=== PATIENT | female | born 1955 | race Caucasian/White ===

== ENCOUNTER 2018-08-28 07:12 | Emergency (ER) | payer SELFPAY ==
[2018-08-28 07:29] VITALS: BP 126/71
--- NOTE | 2018-08-28 07:49 | UC ---
Eye Complaint HPI - HPI Summary HPI Summary: 62 yo female with bilateral eye redness/tearing/pruritis/edema for about a day mild URI symptoms contact lens user no phophobia or fb sensation - History of Current Complaint Chief Complaint: UCEye Stated Complaint: BILATERAL EYE COMPLAINT Time Seen by Provider: 08/28/18 07:33 Hx Obtained From: Patient Onset/Duration: Gradual Onset, Lasting Hours Timing: Constant Severity Initially: Mild Pain Intensity: 3 Pain Scale Used: 0-10 Numeric Location of Injury: Conjunctiva Aggravating Factor(s): Nothing Associated Signs And Symptoms: Positive: Drainage (Clear), Swelling - lids - Risk Factors Penetrating Injury Risk Factor: Negative Globe Rupture Risk Factors: Negative Acute Glaucoma Risk Factors: Negative Optic Artery Occlusion Risk Factors: Negative - Allergies/Home Medications Allergies/Adverse Reactions: Allergies Allergy/AdvReac Type Severity Reaction Status Date / Time No Known Allergies Allergy Verified 08/28/18 07:28 PMH/Surg Hx/FS Hx/Imm Hx Previously Healthy: Yes - Surgical History Surgical History: Yes Surgery Procedure, Year, and Place: circlage - Family History Known Family History: Positive: Hypertension - Social History Alcohol Use: Rare Substance Use Type: None Smoking Status (MU): Never Smoked Tobacco Review of Systems All Other Systems Reviewed And Are Negative: Yes Constitutional: Positive: Negative Skin: Positive: Negative Eyes: Positive: Drainage, Eye Redness ENT: Positive: Sinus Congestion Respiratory: Positive: Negative Cardiovascular: Positive: Negative Gastrointestinal: Positive: Negative Genitourinary: Positive: Negative Motor: Positive: Negative Neurovascular: Positive: Negative Musculoskeletal: Positive: Negative Neurological: Positive: Negative Psychological: Positive: Negative Physical Exam Triage Information Reviewed: Yes Appearance: Well-Appearing, No Pain Distress, Well-Nourished Vital Signs: Initial Vital Signs Temp 98.0 F 08/28/18 07:24 Pulse 72 08/28/18 07:24 Resp 15 08/28/18 07:24 BP 126/71 08/28/18 07:24 Pulse Ox 98 08/28/18 07:24 Vital Signs Reviewed: Yes Eyes: Positive: Conjunctiva Inflamed, Other: - bilateral lid edema and bilateral chemosis R>L ENT: Positive: Hearing grossly normal, Nasal congestion, TMs normal, Uvula midline. Negative: Nasal drainage, Tonsillar swelling, Tonsillar exudate, Trismus, Muffled voice, Hoarse voice, Dental tenderness, Sinus tenderness Dental Exam: Normal Neck: Positive: Supple, Nontender, No Lymphadenopathy Respiratory: Positive: Lungs clear, Normal breath sounds, No respiratory distress, No accessory muscle use Cardiovascular: Positive: RRR, No Murmur Musculoskeletal: Positive: ROM Intact, No Edema Neurological: Positive: Alert Psychological Exam: Normal Skin Exam: Normal Eye Complaint Course/Dx - Differential Dx/Diagnosis Provider Diagnosis: Chemosis of conjunctiva of both eyes Discharge - Sign-Out/Discharge Documenting (check all that apply): Patient Departure All imaging exams completed and their final reports reviewed: No Studies - Discharge Plan Condition: Stable Disposition: HOME Prescriptions: Polymyx/Trimethoprim OPTH* [Polytrim OPHTH*] 1 - 2 drop BOTH EYES QID #1 btl Referrals: Reji STONER,Kushal Vergara [Primary Care Provider] - Additional Instructions: I think your symptoms are due to ocular allergic reaction cool compresses oral benadryl see your eye doctor sometime during the week... no contact lens use until cleared I suggest you also use ZADITOR eye drops (OTC) - Billing Disposition and Condition Condition: STABLE Disposition: Home
== END 2018-08-28 07:59 | disposition home or self-care (01) ==
LOC: UCCORT 07:12
DX: H11.423 Conjunctival edema, bilateral (principal)
CPT/HCPCS: 99202; G0463